=== PATIENT | female | born 1970 | race Caucasian/White ===

== ENCOUNTER 2017-05-25 11:15 | Inpatient (IN) | payer OTHER ==
[~2017-05-25] VITALS: Ht 152.4 cm; Wt 44.9 kg
[2017-05-25] MEDS ORDERED: PHENERGAN25 MG PO (15:32)
[2017-05-25] MEDS ORDERED: LIPITOR40 MG PO (15:32)
[2017-05-25] MEDS ORDERED: ASA81 MG PO (15:33)
== END 2017-06-04 17:12 | disposition home or self-care (01) | DRG 330 ==
LOC: SURH 06-01 09:08 → O/R 06-01 09:08 → SURH 06-01 09:45
PROVIDERS: Colon & Rectal Surgery
PROC: 07TC0ZZ Resection of Pelvis Lymphatic, Open Approach (ICD-10-PCS; 2017-06-01)
PROC: 0DJD8ZZ Inspection of Lower Intestinal Tract, Via Natural or Artificial Opening Endoscopic (ICD-10-PCS; 2017-06-01)
PROC: 0DTN0ZZ Resection of Sigmoid Colon, Open Approach (ICD-10-PCS; principal; 2017-06-01 09:45)
DX: C19 Malignant neoplasm of rectosigmoid junction (principal); C20 Malignant neoplasm of rectum; E78.4 Other hyperlipidemia; D64.89 Other specified anemias